=== PATIENT | male | born 1960 | race Caucasian/White ===

== ENCOUNTER 2016-11-28 07:42 | Emergency (ER) | payer OTHER ==
[2016-11-28 07:58] VITALS: TEMP 98.2; BMI 35.7
--- NOTE | 2016-11-28 08:04 | PDOC ---
History of Present Illness - History of Present Illness Initial Comments: 11/28/16 08:20 The patient is a 56 year old male with a past medical hx of diabetes who presents to the ED complaining of dizziness since last night. The patient states last night he was getting into the shower when he felt a sharp pain in his spine and started to feel dizzy. He reports it was difficult for him to keep his balance. The patient notes he had a second episode of dizziness this morning when he woke up. He states his dizziness worsens when turning his head side to side. The patient notes this morning he did not eat any breakfast he only drank coffee. The patient states he is currently nauseous and has a pain to the right side of his neck. He reports he has not checked his sugar levels recently but reports he has not history of low blood sugar. He states he has never experienced this dizziness in the past. The patient denies chest pain, SOB The patient denies fever, chills The patient denies vomiting, diarrhea Allergies: NKDA Social: Former smoker Surgical: None reported PCP: N/A <Zunilda Rose - Last Filed: 11/28/16 10:22> <Milan Yanes - Last Filed: 11/28/16 11:54> - General Chief Complaint: Lightheaded Stated Complaint: DIZZINESS Past History <Zunilda Rose - Last Filed: 11/28/16 10:22> - Past Medical History Diabetes: Yes HTN: Yes - Psycho/Social/Smoking Cessation Hx Suicidal Ideation: No Smoking Status: Yes Smoking History: Former smoker Have you smoked in the past 12 months: No Number of Cigarettes Smoked Daily: 0 Information on smoking cessation initiated: No <Milan Yanes - Last Filed: 11/28/16 11:54> - Past Medical History Allergies/Adverse Reactions: Allergies Allergy/AdvReac Type Severity Reaction Status Date / Time No Known Allergies Allergy Verified 11/28/16 07:53 Home Medications: Ambulatory Orders Aspirin [ASA -] 81 mg PO DAILY 11/28/16 Atorvastatin Ca [Lipitor] 10 mg PO HS 11/28/16 Bystolic - 20 mg PO DAILY 11/28/16 Empagliflozin [Jardiance] 25 mg PO HS 11/28/16 Fenofibrate,Micronized [Antara] 90 mg PO DAILY 11/28/16 Liraglutide [Victoza -] 1.2 mg SQ DAILY@0700 11/28/16 Metformin HCl [Glucophage] 1,000 mg PO BID 11/28/16 Omeprazole 40 mg PO DAILY 11/28/16 Valsartan/Hydrochlorothiazide [Valsartan-Hctz 320-25 mg Tab] 1 each PO DAILY Review of Systems - Review of Systems Able to Perform ROS?: Yes Comments:: 11/28/16 08:25 CONSTITUTIONAL: Absent: fever, chills, diaphoresis, generalized weakness, malaise, loss of appetite HEENT: Absent: rhinorrhea, nasal congestion, throat pain, throat swelling, difficulty swallowing, mouth swelling, ear pain, eye pain, visual Changes CARDIOVASCULAR: Absent: chest pain, syncope, palpitations, irregular heart rate, lightheadedness , peripheral edema RESPIRATORY: Absent: cough, shortness of breath, dyspnea with exertion, orthopnea, wheezing, stridor, hemoptysis GASTROINTESTINAL: +Nausea. Absent: abdominal pain, abdominal distension, vomiting, diarrhea, constipation, melena, hematochezia GENITOURINARY: Absent: dysuria, frequency, urgency, hesitancy, hematuria, flank pain, genital pain MUSCULOSKELETAL: +Neck pain. Absent: joint swelling SKIN: Absent: rash, itching, pallor HEMATOLOGIC/IMMUNOLOGIC: Absent: easy bleeding, easy bruising, lymphadenopathy, frequent infections ENDOCRINE: Absent: unexplained weight gain, unexplained weight loss, heat intolerance, cold intolerance NEUROLOGIC: +Dizziness. Absent: headache, focal weakness or paresthesias, seizure, mental status changes, bladder or bowel incontinence PSYCHIATRIC: Absent: anxiety, depression, suicidal or homicidal ideation, hallucinations. <Zunilda Rose - Last Filed: 11/28/16 10:22> *Physical Exam - Vital Signs Last Vital Signs Temp Pulse Resp BP Pulse Ox 98.2 F 80 19 140/87 97 11/28/16 07:53 11/28/16 07:53 11/28/16 07:53 11/28/16 07:53 11/28/16 07:53 - Physical Exam Comments: 11/28/16 08:26 GENERAL: Well developed, well nourished. Awake and alert. In no acute distress. HEENT: +Nystagmus. Normocephalic, atraumatic. PERRLA, EOMI. No conjunctival pallor. Sclera are non-icteric. Moist mucous membranes. Oropharynx is clear. NECK: Supple. Full ROM. No JVD. Carotid pulses 2+ and symmetric, without bruits. No thyromegaly. No lymphadenopathy. CARDIOVASCULAR: Regular rate and rhythm. No murmurs, rubs, or gallops. Distal pulses are 2+ and symmetric. PULMONARY: No evidence of respiratory distress. Lungs clear to auscultation bilaterally. No wheezing, rales or rhonchi. ABDOMINAL: Soft. Non-tender. Non-distended. No rebound or guarding. No organomegaly. Normoactive bowel sounds. MUSCULOSKELETAL Normal range of motion at all joints. No bony deformities or tenderness. No CVA tenderness. EXTREMITIES: No cyanosis. No clubbing. No edema. No calf tenderness. SKIN: Warm and dry. Normal capillary refill. No rashes. No jaundice. NEUROLOGICAL: Alert, awake, appropriate. Cranial nerves 2-12 intact. No deficits to light touch and temperature in face, upper extremities and lower extremities. No motor deficits in the in face, upper extremities and lower extremities. Normoreflexic in the upper and lower extremities. Normal speech PSYCHIATRIC: Cooperative. Good eye contact. Appropriate mood and affect. <Zunilda Rose - Last Filed: 11/28/16 10:22> - Vital Signs Last Vital Signs Temp Pulse Resp BP Pulse Ox 98.2 F 80 19 140/87 97 11/28/16 07:53 11/28/16 07:53 11/28/16 07:53 11/28/16 07:53 11/28/16 07:53 <Milan Yanes - Last Filed: 11/28/16 11:54> ED Treatment Course - LABORATORY CBC & Chemistry Diagram: 11/28/16 07:40 11/28/16 08:25 - RADIOLOGY Radiograph Interpretation: 11/28/16 09:50 CT Head IMPRESSION: [id number] atrophy and probable minimal chronic microvascular ischemic changes. No gross acute intracranial pathology is identified. Correlate clinically to determine further evaluation and follow-up. Reported By: Denisa Morocho MD 11/28/16 0856 11/28/16 10:30 Carotid Color Flow Dopp US Impression: There is mild intimal thickening in the distal common carotid artery and at the bifurcation, bilaterally without evidence of hemodynamically significant stenosis. Reported By: Denisa Morocho MD 11/28/16 1020 <Zunilda Rsoe - Last Filed: 11/28/16 10:22> - LABORATORY CBC & Chemistry Diagram: 11/28/16 07:40 11/28/16 08:25 <Milan Yanes - Last Filed: 11/28/16 11:54> Medical Decision Making - Medical Decision Making 11/28/16 11:54 feeling much better wants to go home. <Milan Yanes - Last Filed: 11/28/16 11:54> *DC/Admit/Observation/Transfer - Attestations Scribe Attestion: 11/28/16 08:26 Documentation prepared by Zunilda Rose, acting as biomedical engineering director for Milan Yanes MD, MD/DO. <Zunilda Rose - Last Filed: 11/28/16 10:22> - Discharge Dispostion Admit: No <Milan Yanes - Last Filed: 11/28/16 11:54> Diagnosis at time of Disposition: Neuronitis - Discharge Dispostion Disposition: HOME Condition at time of disposition: Improved
[2016-11-28] MEDS ORDERED: ONDANSETRON 4 MG/2 ML VIAL ONE (08:12)
[2016-11-28] MEDS ORDERED: SODIUM CHLORIDE 1,000 ML IV STA (08:12)
[2016-11-28] MEDS ORDERED: ONDANSETRON 4 MG/2 ML VIAL IVPUSH ONE (08:12)
[2016-11-28] MEDS ORDERED: MECLIZINE HCL 25 MG TABLET (FP) PO ONE ×2 (08:16→10:38)
[2016-11-28] MEDS ORDERED: MECLIZINE HCL 25 MG TABLET (FP) ONE ×2 (08:22→11:11)
[2016-11-28 08:50] LABS: BASOPHIL 1.1 % (0-2.0); EOSINOPHIL 5.4 % (0-4.5); MCHC 33.7 g/dl (32.0-35.9); MEAN PLT VOLUME 8.4 fl (7.5-11.1); NEUTROPHILS 46.6 % (42.8-82.8); PLATELET COUNT 220 K/MM3 (134-434); RDW 14.4 % (11.9-15.9); WHITE BLOOD COUNT 7.5 K/mm3 (4.0-10.0)
[2016-11-28 09:01] LABS: ALBUMIN 3.7 g/dl (3.4-5.0); ANION GAP 12 (8-16); CALCIUM 9.1 mg/dL (8.5-10.1); CO2 27 mmol/L (21-32); CREATININE 1.1 mg/dL (0.7-1.3); GLUCOSE,RANDOM 196 mg/dL (74-106); SGOT/AST 33 U/L (15-37); SGPT/ALT 52 U/L (12-78)
[2016-11-28 09:02] LABS: ALK PHOS 89 U/L (45-117); BILIRUBIN,TOTAL 0.3 mg/dL (0.2-1.0); TOT PROT 7.1 g/dl (6.4-8.2)
[2016-11-28] MEDS ORDERED: diazePAM CARPU-JECT 10 MG/2 ML DISP.SYRIN IVPUSH ONE (10:38)
[2016-11-28] MEDS ORDERED: diazePAM CARPU-JECT 10 MG/2 ML DISP.SYRIN ONE (11:11)
[2016-11-28 11:17] VITALS: BP 144/88; PULSE 85
--- NOTE | 2016-11-28 14:11 | EKG ---
Test Reason : Blood Pressure : / mmHG Vent. Rate : 076 BPM Atrial Rate : 076 BPM P-R Int : 154 ms QRS Dur : 098 ms QT Int : 392 ms P-R-T Axes : 025 -40 -13 degrees QTc Int : 441 ms NORMAL SINUS RHYTHM WITH SINUS ARRHYTHMIA LEFT AXIS DEVIATION INCOMPLETE RIGHT BUNDLE BRANCH BLOCK MODERATE VOLTAGE CRITERIA FOR LVH, MAY BE NORMAL VARIANT ABNORMAL ECG NO PREVIOUS ECGS AVAILABLE Confirmed by NETTIE FRASER, TITO ([id number]) on 11/28/2016 2:11:12 PM Referred By: Eugene MCKINNEY Confirmed By:TITO SHEFFIELD MD
== END 2016-11-28 12:12 | disposition home or self-care (01) ==
LOC: JER 07:42
PROC: 3E033NZ Introduction of Analgesics, Hypnotics, Sedatives into Peripheral Vein, Percutaneous Approach (ICD-10-PCS; principal; 2016-11-28)
PROC: 3E033GC Introduction of Other Therapeutic Substance into Peripheral Vein, Percutaneous Approach (ICD-10-PCS; 2016-11-28)
DX: G58.8 Other specified mononeuropathies (principal); I10 Essential (primary) hypertension; E78.00 Pure hypercholesterolemia, unspecified; E11.9 Type 2 diabetes mellitus without complications; Z79.84 Long term (current) use of oral hypoglycemic drugs
CPT/HCPCS: 36415; 70450-TC; 80053; 85025; 93005; 93010; 93880-TC; 99284-25

== ENCOUNTER 2020-12-22 13:05 | Emergency (ER) | payer OTHER ==
[2020-12-22 13:14] VITALS: TEMP 99; BMI 39.5
[2020-12-22] MEDS ORDERED: VALSARTAN 40 MG TABLET PO ONE (13:58)
[2020-12-22] MEDS ORDERED: HYDROCHLOROTHIAZIDE 25 MG TABLET (FP) PO ONE (13:59)
[2020-12-22] MEDS ORDERED: HYDROCHLOROTHIAZIDE 25 MG TABLET (FP) ONE (14:29)
[2020-12-22] MEDS ORDERED: VALSARTAN 80 MG TABLET ONE (14:30)
[2020-12-22 14:36] LABS: BASO % 0.9 % (0-2.0); EOS % 4.7 % (0-4.5); HEMATOCRIT 42.7 % (35.4-49); LYMPH % 27.5 % (8-40); MCH 29.4 pg (25.7-33.7); MCHC 35.1 g/dl (32.0-35.9); MEAN CELL VOLUME 83.9 fl (80-96); MEAN PLT VOLUME 7.7 fl (7.5-11.1); MONO % 8.1 % (3.8-10.2); NEUT % 58.8 % (42.8-82.8); PLATELET COUNT 266 K/MM3 (134-434); RBC 5.09 M/mm3 (4.00-5.60); RDW 15.4 % (11.9-15.9); WHITE BLOOD COUNT 8.2 K/mm3 (4.0-10.0)
[2020-12-22 14:53] LABS: INR 1.01 (0.83-1.09); PROTHROMBIN TIME (PATIENT) 12.2 SEC (9.7-13.0)
[2020-12-22 14:55] LABS: ACTIVATED PTT 30.5 SECONDS (25.2-36.5)
[2020-12-22 15:01] LABS: CHLORIDE 105 mmol/L (98-107); POTASSIUM 3.6 mmol/L (3.5-5.1); SODIUM 140 mmol/L (136-145)
[2020-12-22 15:03] LABS: ALBUMIN 2.2 g/dl (3.4-5.0); ANION GAP 6 MMOL/L (8-16); BLOOD UREA NITROGEN 19.8 mg/dL (7-18); CALCIUM 8.1 mg/dL (8.5-10.1); CO2 29 mmol/L (21-32); GLUCOSE,RANDOM 174 mg/dL (74-106); MAGNESIUM 1.8 mg/dL (1.8-2.4)
[2020-12-22 15:06] LABS: SGPT/ALT 28 U/L (13-61)
[2020-12-22 15:07] LABS: CREATININE 1.1 mg/dL (0.55-1.3); SGOT/AST 32 U/L (15-37)
[2020-12-22 15:08] LABS: BILIRUBIN,TOTAL 0.4 mg/dL (0.2-1); TOT PROT 5.8 g/dl (6.4-8.2)
[2020-12-22 15:09] LABS: ALK PHOS 84 U/L (45-117)
[2020-12-22] MEDS ORDERED: NEBIVOLOL 10 MG TABLET (FP) PO ONE (16:15)
[2020-12-22] MEDS ORDERED: FUROSEMIDE 40 MG/4 ML INJECTABLE VIAL IVPUSH ONE (16:47)
[2020-12-22] MEDS ORDERED: ACETAMINOPHEN 500 MG TABLET (FP) PO ONE (17:03)
[2020-12-22] MEDS ORDERED: FUROSEMIDE 40 MG/4 ML INJECTABLE VIAL ONE (17:13)
[2020-12-22] MEDS ORDERED: ACETAMINOPHEN 325 MG TABLET (FP) ONE (17:13)
[2020-12-22 17:57] VITALS: BP 170/90; PULSE 92
[2020-12-22 18:56] LABS: EPI CELLS 17 /uL (0-25.1); HYALINE CASTS 4 /uL (0-3.1); PH,URINE 6.5 (5.0-8.0); URINE APPEARANCE CLEAR; URINE BACTERIA 28 /uL (0-1359); URINE BILIRUBIN NEGATIVE (NEGATIVE); URINE COLOR YELLOW; URINE GLUCOSE (UA) 2+ (NEGATIVE); URINE KETONE NEGATIVE (NEGATIVE); URINE LEUK ESTERASE NEGATIVE (NEGATIVE); URINE NITRITE NEGATIVE (NEGATIVE); URINE PROTEIN 4+ (NEGATIVE); URINE RBC 36 /uL (0-23.9); URINE UROBILINOGEN 0.2 mg/dL (0.2-1.0); URINE WBC 5 /uL (0-25.8)
== END 2020-12-22 18:31 | disposition home or self-care (01) ==
LOC: JER 13:05
PROC: 3E033GC Introduction of Other Therapeutic Substance into Peripheral Vein, Percutaneous Approach (ICD-10-PCS; principal; 2020-12-22)
DX: R51.9 Headache, unspecified (principal); R22.41 Localized swelling, mass and lump, right lower limb; R22.42 Localized swelling, mass and lump, left lower limb
CPT/HCPCS: 36415; 70450-TC; 71046-TC-FY; 80053; 81003; 82550; 82553; 83735; 83880; 84484; 85025; 85610; 85730; 93005; 93010; 99285-25

== ENCOUNTER 2025-08-25 13:32 | Inpatient (IN) | payer OTHER ==
[2025-08-25 13:53] VITALS: BMI 36.5
[2025-08-25 15:27] LABS: ABSOLUTE IMMATURE GRANULOCYTES 0.02 x10^3/uL (0.0-0.031); BASOPHILS # 0.06 x10^3/uL (0.01-0.08); EOSINOPHIL % 5.8 % (0.8-7.0); EOSINOPHILS # 0.45 x10^3/uL (0.04-0.54); MCHC 33.2 g/dl (32.3-36.5); MEAN CELL VOLUME 89.3 fl (79.0-92.2); MEAN PLT VOLUME 9.7 fl (9.4-12.4); MONOCYTE # 0.60 x10^3/uL (0.30-0.82); MONOCYTE % 7.8 % (5.3-12.2); RDW 16.1 % (12.2-16.4)
[2025-08-25 15:36] LABS: INR 1.13 (0.83-1.09); PROTHROMBIN TIME (PATIENT) 12.3 SEC (9.7-13.0)
[2025-08-25 15:44] LABS: ACTIVATED PTT 34.5 SECONDS (25.2-36.5)
[2025-08-25 15:55] LABS: GLUCOSE,RANDOM 252 mg/dL (74-106); TOT PROT 5.8 g/dl (6.4-8.2)
[2025-08-25 15:57] LABS: CO2 16 mmol/L (21-32)
[2025-08-25 15:58] LABS: ALK PHOS 158 U/L (40-150)
[2025-08-25 16:01] LABS: CREATININE 8.08 mg/dL (0.55-1.3); SGOT/AST 23 U/L (5-34); SGPT/ALT 25 U/L (0-55)
[2025-08-25 16:24] LABS: HCV DIAGNOSTIC IN-HOUSE W/RFLX NON-REACTIVE (NONREACTIVE)
[2025-08-25 16:39] LABS: BG HCT 27.0 % (35.4-49); VENOUS BASE EXCESS -9.5 mmol/L (-2-2); VENOUS O2 SATURATION 61.8 % (70-80); VENOUS PCO2 36.6 mmHg (38-52); VENOUS PH 7.273 (7.310-7.410)
[2025-08-25] MEDS ORDERED: CALCIUM CHLORIDE 1 GM/10 ML *DISP.SYRIN ONE (16:44)
[2025-08-25] MEDS ORDERED: ACETAMINOPHEN 325 MG TABLET (FP) PO PRN (16:47)
[2025-08-25] MEDS ORDERED: DOCUSATE SODIUM 100 MG CAPSULE (FP) PO PRN (16:47)
[2025-08-25] MEDS ORDERED: CALCIUM GLUCONATE 10% - 1,000 MG/10 ML VIAL ONE (16:52)
[2025-08-25] MEDS: CALCIUM GLUCONATE 10% - 1,000 MG/10 ML VIAL IVPB ONE (17:11)
[2025-08-25 17:13] LABS: EPI CELLS 13 /uL (0-25.1); HYALINE CASTS 1 /uL (0-3.1); URINE APPEARANCE CLEAR; URINE BACTERIA 7 /uL (0-1359); URINE BILIRUBIN NEGATIVE (NEGATIVE); URINE COLOR YELLOW; URINE GLUCOSE (UA) 3+ (NEGATIVE); URINE KETONE NEGATIVE (NEGATIVE); URINE LEUK ESTERASE NEGATIVE (NEGATIVE); URINE NITRITE NEGATIVE (NEGATIVE); URINE PROTEIN 4+ (NEGATIVE); URINE RBC 28 /uL (0-23.9); URINE UROBILINOGEN 0.2 mg/dL (0.2-1.0); URINE WBC 21 /uL (0-25.8)
[2025-08-25] MEDS: CALCITRIOL 0.25 MCG CAPSULE (FP) PO ONE (17:25)
[2025-08-25] MEDS: CALCIUM ACETATE 667 MG CAPSULE (FP) PO SCH (18:20)
[2025-08-25] MEDS: SODIUM BICARBONATE 650 MG TABLET PO SCH (21:37)
[2025-08-25] MEDS: INSULIN GLARGINE (LANTUS) 100 UNITS/ML UNITS SQ SCH (21:37)
[2025-08-25] MEDS: ATORVASTATIN CA 10 MG TABLET (FP) PO SCH (21:37)
[2025-08-25] MEDS: INSULIN ASPART SLIDING SCALE (NOVOLOG) 1 VIAL SQ SCH (21:38)
[2025-08-26] MEDS: EMPAGLIFLOZIN (JARDIANCE) 25 MG TABLET PO SCH (06:58)
[2025-08-26] MEDS: PANTOPRAZOLE 40 MG TABLET PO SCH (09:53)
[2025-08-26] MEDS: NEBIVOLOL 10 MG TABLET (FP) PO SCH (09:53)
[2025-08-26] MEDS: FUROSEMIDE 20 MG TABLET (FP) PO SCH (09:53)
[2025-08-26] MEDS ORDERED: LIDOCAINE HCL 1%, 10 MG/ML (20ML VIAL) ONE (10:34)
[2025-08-26] MEDS ORDERED: HEPARIN NA (PORCINE) 5,000 UNITS/ML 1ML VIAL ONE (10:34)
[2025-08-26] MEDS ORDERED: LIDOCAINE HCL/PF 2% SDV 5ML VIAL ONE (10:52)
[2025-08-26] MEDS ORDERED: MIDAZOLAM HCL 2 MG/2 ML SINGLE DOSE VIAL ONE (10:52)
[2025-08-26] MEDS ORDERED: PROPOFOL 60 ML ONE (10:52)
[2025-08-26 10:59] LABS: HIV INTERPRETATION NEGATIVE (NEGATIVE)
[2025-08-26] MEDS: LIDOCAINE HCL 1%, 10 MG/ML (20ML VIAL) INF ONE (12:03)
[2025-08-26] MEDS ORDERED: ONDANSETRON 4 MG/2 ML VIAL IVPUSH PRN ×2 (12:25→12:30)
[2025-08-26] MEDS ORDERED: PROMETHAZINE HCL 25 MG/1 ML VIAL IVPB PRN ×2 (12:25→12:30)
[2025-08-26] MEDS ORDERED: DOCUSATE SODIUM 100 MG CAPSULE (FP) PO PRN (12:30)
[2025-08-26] MEDS ORDERED: ACETAMINOPHEN 325 MG TABLET (FP) PO PRN (12:30)
[2025-08-26] MEDS ORDERED: LACTATED RINGERS SOLUTION 1,000 ML IV SCH (12:30)
[2025-08-26] MEDS: ACETAMINOPHEN 1000 MG/100 ML BAG IVPB ONE ×2 (13:00→16:56)
[2025-08-26] MEDS ORDERED: ACETAMINOPHEN INJECTION 100 ML ONE (13:04)
[2025-08-26] MEDS ORDERED: SODIUM CHLORIDE 250 ML IV PRN (13:07)
[2025-08-26 13:57] LABS: MCHC 32.2 g/dl (32.3-36.5); MEAN CELL VOLUME 90.4 fl (79.0-92.2); MEAN PLT VOLUME 9.7 fl (9.4-12.4); RDW 16.4 % (12.2-16.4)
[2025-08-26 14:49] LABS: HEPATITIS B SURF AG NON-MATERN NON-REACTIVE (NONREACTIVE)
[2025-08-26 15:46] LABS: GLUCOSE,RANDOM 162 mg/dL (74-106)
[2025-08-26 15:47] LABS: TOT PROT 5.0 g/dl (6.4-8.2)
[2025-08-26 15:48] LABS: CO2 17 mmol/L (21-32)
[2025-08-26 15:49] LABS: ALK PHOS 115 U/L (40-150)
[2025-08-26 15:52] LABS: CREATININE 7.75 mg/dL (0.55-1.3); SGOT/AST 17 U/L (5-34); SGPT/ALT 16 U/L (0-55)
[2025-08-26] MEDS: LACTATED RINGERS SOLUTION 1,000 ML IV SCH (16:57)
[2025-08-26] MEDS: INSULIN ASPART SLIDING SCALE (NOVOLOG) 1 VIAL SQ SCH (17:38)
[2025-08-26] MEDS: CALCIUM ACETATE 667 MG CAPSULE (FP) PO SCH (17:41)
[2025-08-26] MEDS: INSULIN GLARGINE (LANTUS) 100 UNITS/ML UNITS SQ SCH (21:13)
[2025-08-26] MEDS: ATORVASTATIN CA 10 MG TABLET (FP) PO SCH (21:13)
[2025-08-26] MEDS ORDERED: SODIUM BICARBONATE 650 MG TABLET PO SCH (22:00)
[2025-08-27] MEDS: EMPAGLIFLOZIN (JARDIANCE) 25 MG TABLET PO SCH (06:38)
[2025-08-27] MEDS: NEBIVOLOL 10 MG TABLET (FP) PO SCH (09:12)
[2025-08-27] MEDS: PANTOPRAZOLE 40 MG TABLET PO SCH (09:12)
[2025-08-27] MEDS ORDERED: SODIUM CHLORIDE 250 ML IV PRN (09:25)
[2025-08-27] MEDS ORDERED: FUROSEMIDE 20 MG TABLET (FP) PO SCH (10:00)
[2025-08-27 10:43] LABS: MCHC 32.9 g/dl (32.3-36.5); MEAN CELL VOLUME 88.0 fl (79.0-92.2); MEAN PLT VOLUME 9.7 fl (9.4-12.4); RDW 16.0 % (12.2-16.4)
[2025-08-27] MEDS: HEPARIN NA (PORCINE) 5,000 UNITS/ML 1ML VIAL IVPUSH ONE (14:35)
[2025-08-27 15:24] LABS: GLUCOSE,RANDOM 156.0 mg/dL (74-106)
[2025-08-27 15:25] LABS: TOT PROT 4.8 g/dl (6.4-8.2)
[2025-08-27 15:26] LABS: CO2 20.0 mmol/L (21-32)
[2025-08-27 15:27] LABS: ALK PHOS 122.0 U/L (40-150)
[2025-08-27 15:30] LABS: CREATININE 6.23 mg/dL (0.55-1.3); SGOT/AST 22.0 U/L (5-34); SGPT/ALT 12.0 U/L (0-55)
[2025-08-27] MEDS: EPOETIN ALFA-EPBX 10,000 UNIT/ML VIAL IVPUSH ONE (16:37)
[2025-08-28 09:11] LABS: ABSOLUTE IMMATURE GRANULOCYTES 0.02 x10^3/uL (0.0-0.031); BASOPHILS # 0.05 x10^3/uL (0.01-0.08); EOSINOPHIL % 6.5 % (0.8-7.0); EOSINOPHILS # 0.39 x10^3/uL (0.04-0.54); MCHC 32.4 g/dl (32.3-36.5); MEAN CELL VOLUME 88.6 fl (79.0-92.2); MEAN PLT VOLUME 10.3 fl (9.4-12.4); MONOCYTE # 0.81 x10^3/uL (0.30-0.82); MONOCYTE % 13.4 % (5.3-12.2); RDW 15.9 % (12.2-16.4)
[2025-08-28] MEDS: TORSEMIDE 20 MG TABLET (FP) PO ONE (09:17)
[2025-08-28 09:27] LABS: GLUCOSE,RANDOM 122 mg/dL (74-106)
[2025-08-28 09:28] LABS: TOT PROT 4.7 g/dl (6.4-8.2)
[2025-08-28 09:29] LABS: CO2 25 mmol/L (21-32)
[2025-08-28 09:30] LABS: ALK PHOS 116 U/L (40-150)
[2025-08-28 09:33] LABS: CREATININE 4.89 mg/dL (0.55-1.3); SGOT/AST 24 U/L (5-34); SGPT/ALT 13 U/L (0-55)
[2025-08-28] MEDS ORDERED: ALBUTEROL SO4 2.5/IPRATROPIUM 0.5 INH SOL 3 ML VIAL.NEB. NEB PRN (11:48)
[2025-08-29 07:38] LABS: ABSOLUTE IMMATURE GRANULOCYTES 0.03 x10^3/uL (0.0-0.031); BASOPHILS # 0.06 x10^3/uL (0.01-0.08); EOSINOPHIL % 7.1 % (0.8-7.0); EOSINOPHILS # 0.48 x10^3/uL (0.04-0.54); MCHC 32.7 g/dl (32.3-36.5); MEAN CELL VOLUME 89.7 fl (79.0-92.2); MEAN PLT VOLUME 10.1 fl (9.4-12.4); MONOCYTE # 0.84 x10^3/uL (0.30-0.82); MONOCYTE % 12.5 % (5.3-12.2); RDW 15.5 % (12.2-16.4)
[2025-08-29 07:47] LABS: GLUCOSE,RANDOM 113.0 mg/dL (74-106); TOT PROT 5.3 g/dl (6.4-8.2)
[2025-08-29 07:48] LABS: CO2 24.0 mmol/L (21-32)
[2025-08-29 07:50] LABS: ALK PHOS 136.0 U/L (40-150)
[2025-08-29 07:52] LABS: CREATININE 5.39 mg/dL (0.55-1.3); SGOT/AST 33.0 U/L (5-34); SGPT/ALT 24.0 U/L (0-55)
[2025-08-29] MEDS ORDERED: SODIUM CHLORIDE 250 ML IV PRN (10:07)
[2025-08-29] MEDS: CALCITRIOL 0.25 MCG CAPSULE (FP) PO SCH (10:38)
[2025-08-29] MEDS: amLODIPine BESYLATE 5 MG TABLET (FP) PO ONE (18:17)
[2025-08-29] MEDS: HEPARIN NA (PORCINE) 5,000 UNITS/ML 1ML VIAL IVPUSH ONE (20:21)
[2025-08-29] MEDS: EPOETIN ALFA-EPBX 10,000 UNIT/ML VIAL SQ ONE (20:22)
[2025-08-30 07:15] VITALS: RESP 18
[2025-08-30] MEDS: LOSARTAN POTASSIUM 50 MG TABLET PO SCH (12:09)
[2025-08-30] MEDS: FUROSEMIDE 40 MG TABLET (FP) PO SCH (12:09)
[2025-08-31] MEDS ORDERED: ROPIVACAINE HCL 0.5% 30ML VIAL ONE (08:43)
[2025-08-31] MEDS ORDERED: DEXMEDETOMIDINE HCL 200 MCG/2 ML IVPB ONE (08:43)
[2025-08-31] MEDS ORDERED: LIDOCAINE HCL 1%, 10 MG/ML (20ML VIAL) ONE (08:44)
[2025-08-31] MEDS ORDERED: HEPARIN NA (PORCINE) 5,000 UNITS/ML 1ML VIAL ONE (08:44)
[2025-08-31] MEDS ORDERED: PROPOFOL 20 ML ONE (08:46)
[2025-08-31] MEDS ORDERED: MIDAZOLAM HCL 2 MG/2 ML SINGLE DOSE VIAL ONE (08:46)
[2025-08-31 09:01] LABS: MCHC 32.3 g/dl (32.3-36.5); MEAN CELL VOLUME 90.5 fl (79.0-92.2); MEAN PLT VOLUME 9.9 fl (9.4-12.4); RDW 15.9 % (12.2-16.4)
[2025-08-31] MEDS ORDERED: ONDANSETRON 4 MG/2 ML VIAL ONE (09:14)
[2025-08-31 09:44] LABS: GLUCOSE,RANDOM 118.0 mg/dL (74-106)
[2025-08-31 09:46] LABS: CO2 27.0 mmol/L (21-32)
[2025-08-31 09:50] LABS: CREATININE 5.34 mg/dL (0.55-1.3)
[2025-08-31] MEDS ORDERED: DOCUSATE SODIUM 100 MG CAPSULE (FP) PO PRN (11:25)
[2025-08-31] MEDS ORDERED: ALBUTEROL SO4 2.5/IPRATROPIUM 0.5 INH SOL 3 ML VIAL.NEB. NEB PRN (11:25)
[2025-08-31] MEDS ORDERED: ACETAMINOPHEN 325 MG TABLET (FP) PO PRN ×2 (11:25→11:38)
[2025-08-31] MEDS ORDERED: ACETAMINOPHEN 500 MG TABLET (FP) PO PRN (11:40)
[2025-08-31] MEDS: CALCIUM ACETATE 667 MG CAPSULE (FP) PO SCH (12:20)
[2025-08-31 13:56] VITALS: BP 179/76; PULSE 58; TEMP 98.8
[2025-08-31] MEDS ORDERED: INSULIN ASPART SLIDING SCALE (NOVOLOG) 1 VIAL SQ SCH (16:30)
[2025-08-31] MEDS ORDERED: ATORVASTATIN CA 10 MG TABLET (FP) PO SCH (22:00)
[2025-08-31] MEDS ORDERED: INSULIN GLARGINE (LANTUS) 100 UNITS/ML UNITS SQ SCH (22:00)
[2025-09-01] MEDS ORDERED: EMPAGLIFLOZIN (JARDIANCE) 25 MG TABLET PO SCH (07:00)
[2025-09-01] MEDS ORDERED: FUROSEMIDE 40 MG TABLET (FP) PO SCH (10:00)
[2025-09-01] MEDS ORDERED: LOSARTAN POTASSIUM 50 MG TABLET PO SCH (10:00)
[2025-09-01] MEDS ORDERED: PANTOPRAZOLE 40 MG TABLET PO SCH (10:00)
[2025-09-01] MEDS ORDERED: NEBIVOLOL 10 MG TABLET (FP) PO SCH (10:00)
== END 2025-08-31 15:00 | disposition home or self-care (01) | DRG 675 ==
LOC: JER 13:32 → JERBED 16:07 → J7W 18:52
PROVIDERS: ADMIT Family Medicine; ATTEND Family Medicine
PROC: 5A1D70Z Performance of Urinary Filtration, Intermittent, Less than 6 Hours Per Day (ICD-10-PCS; 2025-08-26)
PROC: 5A1D70Z Performance of Urinary Filtration, Intermittent, Less than 6 Hours Per Day (ICD-10-PCS; 2025-08-27)
PROC: 5A1D70Z Performance of Urinary Filtration, Intermittent, Less than 6 Hours Per Day (ICD-10-PCS; 2025-08-29)
PROC: 0JH63XZ Insertion of Tunneled Vascular Access Device into Chest Subcutaneous Tissue and Fascia, Percutaneous Approach (ICD-10-PCS; 2025-08-31)
PROC: 05HM33Z Insertion of Infusion Device into Right Internal Jugular Vein, Percutaneous Approach (ICD-10-PCS; 2025-08-31)
PROC: 03180JD Bypass Left Brachial Artery to Upper Arm Vein with Synthetic Substitute, Open Approach (ICD-10-PCS; principal; 2025-08-31 09:00)
DX: I12.0 Hypertensive chronic kidney disease with stage 5 chronic kidney disease or end stage renal disease (principal); N18.6 End stage renal disease; E11.22 Type 2 diabetes mellitus with diabetic chronic kidney disease; Z99.2 Dependence on renal dialysis; E78.5 Hyperlipidemia, unspecified; E66.9 Obesity, unspecified; Z68.36 Body mass index [BMI] 36.0-36.9, adult; E83.51 Hypocalcemia; N28.1 Cyst of kidney, acquired; D64.9 Anemia, unspecified; E83.39 Other disorders of phosphorus metabolism
CPT/HCPCS: 36415; 71045-TC-FY; 71046-TC-FY; 76000-TC-FY; 80048; 80053; 81003; 82803; 82962; 83735; 84100; 85025; 85027; 85610; 85730; 86704; 86707; 86803; 86850; 86900; 86901; 87086; 87340; 87389; 93005; 93010; 93970-TC; 94760; 99285-25; C1750; J1644; Q5106